=== PATIENT | male | born 1945 | race Caucasian/White ===

== ENCOUNTER 2016-10-08 15:52 | Inpatient (IN) | payer MEDICARE, OTHER ==
[2016-10-08] VITALS (7 sets, daily range): BP systolic 108–141; BP diastolic 64–81
[~2016-10-08] VITALS: Ht 190.5 cm; Wt 92.6 kg
--- NOTE | ~2016-10-08 | PR ---
[place], [place] PROGRESS NOTE NAME[id number] UNIT #: [id number] ROOM: 401 DOCTOR: ROBER WEINBERG MD BIRTHDATE: [birth year] DOS: 10/14/2016 SUBJECTIVE: The patient is doing much better. Still has left-sided chest tube, though his breathing is much better. He is alert and oriented. REVIEW OF SYSTEMS HEENT: No trouble swallowing. No double vision. No loss of vision. No pain. ENT AND RESPIRATORY: No wheeze. No change in voice. No cough. No shortness of breath. No coughing up blood. No epistaxis. CARDIOLOGIC: No chest pain. No dizziness. No irregular heartbeat. No leg edema. No palpitations. No shortness of breath. HEMATOLOGIC AND LYMPH: No past transfusion. No fatigue. No loss of appetite. No easy bruising. GASTROENEROLOGIC: No change in bowel habits. No vomiting blood. No abdominal cramping. No nausea. No vomiting. No diarrhea. No constipation. No blood in stool. MALE REPRODUCTIVE: No testicular pain. No penile discharge. MUSCULOSKELETAL: No back pain. No muscle pain or weakness. No tingling/numbness. UROLOGIC: No pain with urination. No difficulty urinating. No frequent urination. NEUROLOGIC: No burning pain in feet. No trouble with coordination. No loss of consciousness. No headache. No tingling/numbness. No memory loss. PHYSICAL EXAMINATION: GENERAL: Pleasant gentleman, in no apparent distress. VITAL SIGNS: Blood pressure 123/71, respirations 20, pulse 80, temperature 98.1. HEENT: Normocephalic, atraumatic NECK AND THYROID: Supple. No JVD, thyromegaly, or lymphadenopathy. HEART: Normal S1, S2. Regular rate and rhythm. LUNGS: Clear to auscultation and percussion. ABDOMEN: Soft. Nontender, nondistended. Bowel sounds present. EXTREMITIES: Normal ROM. No clubbing. No edema. LABORATORY DATA: White count of 275.4, hemoglobin of 9.6, hematocrit 32.6, platelet count of 276. ASSESSMENT: 1. Possible pneumonia. 2. Leukocytosis secondary to chronic lymphocytic leukemia/infection sepsis. 3. Anemia of chronic disease. 4. Immune deficiency. 5. Chronic lymphocytic leukemia. 6. Left chest tube placement. PLAN: Overall, he is doing much better. His breathing is much better. I expect the white count to improve once his overall condition improves. His hemoglobin and hematocrit is stable. We will just keep a close watch at this time. If the counts drop, then further intervention. I had a detailed [place], [place] PROGRESS NOTE NAME: BONNIE BENDER UNIT #: [id number] ROOM: 401 DOCTOR: ROBER WEINBERG MD BIRTHDATE: [birth year] discussion with the patient about it. Ample time was given to the patient to ask me questions. ROBER WEINBERG MD CM:PNTRANS [phone] ROBER WEINBERG MD 10/16/16 0039 interface
--- NOTE | ~2016-10-08 | PR ---
[place], [place] PROGRESS NOTE NAME: BONNIE BENDER UNIT #: [id number] ROOM: 401 DOCTOR: ROBER WEINBERG MD BIRTHDATE: [birth year] DOS: SUBJECTIVE: The patient is doing better, awake, alert and responsive. REVIEW OF SYSTEMS HEENT: No trouble swallowing. No double vision. No loss of vision. No pain. ENT AND RESPIRATORY: No wheeze. No change in voice. No cough. No shortness of breath. No coughing up blood. No epistaxis. CARDIOLOGIC: No chest pain. No dizziness. No irregular heartbeat. No leg edema. No palpitations. No shortness of breath. HEMATOLOGIC AND LYMPH: No past transfusion. No fatigue. No loss of appetite. No easy bruising. GASTROENEROLOGIC: No change in bowel habits. No vomiting blood. No abdominal cramping. No nausea. No vomiting. No diarrhea. No constipation. No blood in stool. MALE REPRODUCTIVE: No testicular pain. No penile discharge. MUSCULOSKELETAL: No back pain. No muscle pain or weakness. No tingling/numbness. UROLOGIC: No pain with urination. No difficulty urinating. No frequent urination. NEUROLOGIC: No burning pain in feet. No trouble with coordination. No loss of consciousness. No headache. No tingling/numbness. No memory loss. PHYSICAL EXAMINATION GENERAL: Pleasant gentleman in no apparent distress. VITAL SIGNS: Blood pressure 128/65, respirations 19, pulse 97, temperature 98.1. HEENT: Normocephalic, atraumatic NECK AND THYROID: Supple. No JVD, thyromegaly, or lymphadenopathy. HEART: Normal S1, S2. Regular rate and rhythm. LUNGS: Showed minimal decreased breath sounds in the right side. ABDOMEN: Soft. Nontender, nondistended. Bowel sounds present. EXTREMITIES: Normal ROM. No clubbing. No edema. LABORATORY DATA: White count up to 76.4, hemoglobin 9.7, hematocrit 33.0, platelet count of 203. ASSESSMENT: 1. Chronic lymphocytic leukemia. 2. Immunodeficiency 3. Pneumonia. 4. Leukocytosis secondary to chronic lymphocytic leukemia/infection. 5. Status post chest tube placement. PLAN: Overall, he is still getting better. We will just keep a close watch at this time. We expect the white count to improve once his overall condition improves. Follow for now. Continue broad spectrum antibiotics. We will wait for cytology to come back and discuss. [place], [place] PROGRESS NOTE NAME: BONNIE BENDER UNIT #: [id number] ROOM: 401 DOCTOR: ROBER WEINBERG MD BIRTHDATE: [birth year] ROBER WEINBERG MD CM:PNTRANS [phone] ROBER WEINBERG MD 10/13/16 2248 interface
--- NOTE | ~2016-10-08 | PR ---
[place], [place] PROGRESS NOTE [id number] UNIT #: [id number] ROOM: 401 DOCTOR: ROBER WEINBERG MD BIRTHDATE: [birth year] DOS: 10/10/2016 SUBJECTIVE: The patient is doing better, though he had fever yesterday. REVIEW OF SYSTEMS: HEENT: No trouble swallowing. No double vision. No loss of vision. No pain. ENT AND RESPIRATORY: No wheeze. No change in voice. No cough. No shortness of breath. No coughing up blood. No epistaxis. CARDIOLOGIC: No chest pain. No dizziness. No irregular heartbeat. No leg edema. No palpitations. No shortness of breath. HEMATOLOGIC AND LYMPH: No past transfusion. No fatigue. No loss of appetite. No easy bruising. GASTROENTEROLOGIC: No change in bowel habits. No vomiting blood. No abdominal cramping. No nausea. No vomiting. No diarrhea. No constipation. No blood in stool. MALE REPRODUCTIVE: No testicular pain. No penile discharge. MUSCULOSKELETAL: No back pain. No muscle pain or weakness. No tingling/numbness. UROLOGIC: No pain with urination. No difficulty urinating. No frequent urination. NEUROLOGIC: No burning pain in feet. No trouble with coordination. No loss of consciousness. No headache. No tingling/numbness. No memory loss. PHYSICAL EXAMINATION: GENERAL: Pleasant gentleman in no apparent distress. VITAL SIGNS: Stable, afebrile. HEENT: Normocephalic, atraumatic. NECK AND THYROID: Supple. No JVD, thyromegaly, or lymphadenopathy. HEART: Normal S1, S2. Regular rate and rhythm. LUNGS: Clear to auscultation and percussion. ABDOMEN: Soft. Nontender, nondistended. Bowel sounds present. EXTREMITIES: Normal ROM. No clubbing. No edema. LABORATORY DATA: White count of 248.7, hemoglobin 9.9, hematocrit 32.6, MCV 97.6, platelet count 276,000. Peripheral smear shows lymphocytes 2-6.3 and no other abnormal cells. ASSESSMENT: 1. Possible pneumonia. 2. Left large pleural effusion. 3. Status post MediPort placement. 4. Chronic lymphocytic leukemia with elevated white count secondary infections/chronic lymphocytic leukemia. 5. Anemia of neoplastic disorder. PLAN: Dr. Villafuerte going to evaluate him for his pleural effusion. In the meantime, continue broad spectrum antibiotics. Blood cultures are pending at this point. Depending on the above further intervention discussed. We will follow. [place], [place] PROGRESS NOTE NAME: BONNIE BENDER UNIT #: [id number] ROOM: [facility] DOCTOR: ROBER WEINBERG MD BIRTHDATE: [birth year] ROBER WEINBERG MD CM:PNTRANS [phone] ROBER WEINBERG MD 10/10/16 1457 interface
--- NOTE | ~2016-10-08 | PR ---
[place], [place] PROGRESS NOTE NAME: [facility]END[id number] UNIT #: [id number] ROOM: 401 DOCTOR: ROBER WEINBERG MD BIRTHDATE: [birth year] DOS: 10/12/2016 SUBJECTIVE: The patient is doing better. He finally got a left-sided chest tube placement and pleural fluid was drained which is sent for cytology. He is feeling much better today. His breathing is better. REVIEW OF SYSTEMS HEENT: No trouble swallowing. No double vision. No loss of vision. No pain. ENT AND RESPIRATORY: No wheeze. No change in voice. No cough. No shortness of breath. No coughing up blood. No epistaxis. CARDIOLOGIC: No chest pain. No dizziness. No irregular heartbeat. No leg edema. No palpitations. No shortness of breath. HEMATOLOGIC AND LYMPH: No past transfusion. No fatigue. No loss of appetite. No easy bruising. GASTROENEROLOGIC: No change in bowel habits. No vomiting blood. No abdominal cramping. No nausea. No vomiting. No diarrhea. No constipation. No blood in stool. MALE REPRODUCTIVE: No testicular pain. No penile discharge. MUSCULOSKELETAL: No back pain. No muscle pain or weakness. No tingling/numbness. UROLOGIC: No pain with urination. No difficulty urinating. No frequent urination. NEUROLOGIC: No burning pain in feet. No trouble with coordination. No loss of consciousness. No headache. No tingling/numbness. No memory loss. PHYSICAL EXAMINATION: GENERAL: A pleasant gentleman in no apparent distress. VITAL SIGNS: Blood pressure 120/70, respirations 18, pulse 90, temperature 98.8. HEENT: Normocephalic, atraumatic NECK AND THYROID: Supple. No JVD, thyromegaly, or lymphadenopathy. HEART: Normal S1, S2. Regular rate and rhythm. LUNGS: Clear to auscultation and percussion. ABDOMEN: Soft. Nontender, nondistended. Bowel sounds present. EXTREMITIES: Normal ROM. No clubbing. No edema. LABORATORY DATA: White count of 248.7, hemoglobin 9.9, hematocrit 32.6, platelet count of 176. CBC from today is pending. ASSESSMENT: 1. Leukocytosis/lymphocytosis secondary to chronic lymphocytic leukemia. 2. Immunodeficiency. 3. Anemia of neoplastic disorder. 4. Status post left thoracostomy tube with of the pleural fluid. PLAN: We will wait for the cytology reports of the pleural fluid to come back. In the meantime, continue broad spectrum antibiotics and follow up counts closely. I had detailed discussion with the patient about it. [place], [place] PROGRESS NOTE NAME: BONNIE BENDER UNIT #: [id number] ROOM: 401 DOCTOR: ROBER WEINBERG MD BIRTHDATE: [birth year] ROBER WEINBERG MD CM:PNTRANS 0 30 ROBER WEINBERG MD 10/12/162330 interface
--- NOTE | ~2016-10-08 | PR ---
[place], [place] PROGRESS NOTE NAME: BONNIE BENDER [facility] #: [id number] UNIT #: [id number] ROOM: 401 DOCTOR: SIMEON RAHMAN MD BIRTHDATE: [birth year] DOS: 10/15/2016 PULMONARY PROGRESS NOTE SUBJECTIVE: The patient has chemical pleurolysis done yesterday as well through the chest tube for the patient. There was no fluid drainage was noted. Some fluid for this patient noted around the site of the drainage. The patient denies any symptoms of chest pain, which was severe. The patient does take [place] p.r.n. for the management of the chest pain. OBJECTIVE: VITAL SIGNS: Shows a normal temperature, respiratory rate of 18, heart rate 90, blood pressure 115/ . The intake is 2.285 liters. The output was 1.550. Pulse oxygen saturation of the patient recorded on 2 liters nasal cannula 92% saturation. HEENT: Examination shows head was atraumatic. Eyes nonicterus. NECK: Supple. CARDIOVASCULAR SYSTEM: S1, S2 audible. LUNGS: The patient was noted without any wheezing or crackles at the present time on the right side. Decreased breaths are noted left lower chest. ABDOMEN: Soft. EXTREMITIES: Showed no edema. LABORATORY DATA: BUN and creatinine today were normal. CBC: WBC count 275,000, hemoglobin 9.6, hematocrit 32.6, platelet count 276,000. Chest x-ray of the patient done this morning for the patient shows haziness for this patient collection of the pleural fluid remains persistent possible loculation of the pleural fluid. The ultrasound of the chest has been personally performed for this patient and the dressing was removed for the patient at the bedside. Multiloculated fluid was still noted in the left lower chest. Chest tube was noted with a bit kinking at the site, which was corrected. After that, the patient has been noted with drainage of 250 or 300 mL of fluid, which was noted hemorrhagic fluid. IMPRESSION: 1. The patient with history of chronic lymphocytic leukemia for this patient with possibility of acute pneumonia. 2. 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 3. Significantly hemorrhagic pleural fluid multiloculated as well. PLAN OF TREATMENT: Detailed discussion has been made with the patient for further intervention to be needed as the VATS procedure for more definitive assessment and management of current pleural fluid. The pleural biopsy will be recommended to rule out any underlying malignancy including consideration for this patient, possibility of mesothelioma. The chest tube was remained to the suction. I have spoken to the primary care attending of patient, Dr. Verdugo for the patient about that and arrangement will be made since the patient has made his mind that he would like to go to [facility] for further care. I have also spoken with the thoracic surgeon at [facility], Dr. Reaves [place], [place] PROGRESS NOTE NAME: [id number] UNIT #: [id number] ROOM: [facility] DOCTOR: JASSON AVENDAÑO MD,SIMEON BIRTHDATE: [birth year] win as he open-ended for further intervention that will be needed. All of them agreeable for that. In the meantime, continue other previous treatment therapy, plan of management and care. Usual care, other supportive plan of therapy. SIMEON SPAULDING MD CM:PNTRANS [phone] SIMEON AVENDAÑO MD 10/16/16 034 interface
--- NOTE | ~2016-10-08 | PR ---
[place], [place] PROGRESS NOTE NAME: BONNIE BENDER [facility] #: [id number] UNIT #: [id number] ROOM: 401 DOCTOR: SIMEON RAHMAN MD BIRTHDATE: [birth year] DOS: 10/12/2016 PULMONARY PROGRESS NOTE SUBJECTIVE: He had been noted comfortable at this time. Chest tube for the patient was inserted yesterday about 1500 mL of total pleural fluid for this patient drained from the left pleural space. The patient has been getting [place] for the patient's pain management as needed. Denies any symptoms of hemoptysis. There was mild cough. OBJECTIVE: VITAL SIGNS: Showed normal temperature, respiratory rate 20, heart rate 87, blood pressure 120/62. Pulse oxygen saturation of the patient noted on 3 liters canula 92% saturation. HEENT: Examination shows no acute change. NECK: Supple. CARDIOVASCULAR: S1, S2 is audible. LUNGS: The patient was noted without any wheezing or crackles on the right side. Decreased breath sounds noted in the left lower lung. The chest tube is in place. ABDOMEN: Soft, nontender. LABORATORY DATA: Pleural fluid analysis shows wbc's count noted 9787 with 355,000 rbc's. The hematocrit was noted as 3.7. Lymphocyte noted 93%. The cytology of the pleural fluid was noted as benign. Pleural fluid analysis for the patient was further done for this patient with glucose noted 94, total protein 4.5, cholesterol of 87, triglycerides 71, albumin of 2.4, LDH 741. Chest x-ray done this morning shows the chest tube of the patient remains in place with persistent partially loculated pleural fluid was noted, small to moderate sized in the left lower chest. IMPRESSION: 1. The patient with recurrent pleural fluid of the patient noted consistent with findings of acute complicated pleural fluid secondary to acute bacterial pneumonia is very likely. 2. History of CLL as well, which has been known previously. The cytology of pleural fluids noted as benign without any malignant cells. PLAN OF TREATMENT: Continue antibiotics, bronchodilators. We assess the patient with another chest x-ray tomorrow morning if necessary inject Cathflo for the patient through the chest tube to break the loculation. Other previous treatment, plan of management will be continued as well. Usual care. Ordered the supportive therapy, plan of care as in plan of management. Continue antibiotics, bronchodilators, oxygen supplementation and monitor pleural fluid output. The total output of the pleural fluid was noted about 1500 mL of greater, which were noted very hemorrhagic. Also add more lab for this patient in today's note for the patient before the impression note today, BUN today was noted as normal. Creatinine was normal. Vancomycin level noted at 12.4. CBC: WBC count 276,000, hemoglobin 8.7, hematocrit 33.0, platelet count 203,000. The differentials noted predominantly as the lymphocytes. [place], [place] PROGRESS NOTE NAME: BONNIE BENDER UNIT #: [id number] ROOM: [facility] DOCTOR: SIMEON RAHMAN MD BIRTHDATE: [birth year] SIMEON SPAULDING MD CM:PNTRANS [phone] SMIEON AVENDAÑO MD 10/13/167 interface
--- NOTE | ~2016-10-08 | PROC NOTE ---
[place], [place] PROCEDURE NOTE NAME[facility]: [id number] UNIT #: [id number] ROOM: 401 DOCTOR: JASSON AVENDAÑO MD,SIMEON BIRTHDATE: [birth year] DOS: 10/14/2016 CHEMICAL PLEUROLYSIS PREOPERATIVE DIAGNOSIS: Persistent loculated pleural fluid in the patient. POSTOPERATIVE DIAGNOSIS: Persistent loculated pleural fluid in the patient. PROCEDURE DESCRIPTION: The patient was informed about the procedure. The chest tube was clamped. The sterile preparation of 4 mg ____ was mixed in normal saline, total of ____ volume injected through the chest tube without any difficulty. Additional 100 mL of sterile normal saline also injected for the patient to flush the chest tube. The chest tube remained clamped for 4 hours and released back to suction. Procedure well tolerated without any complications noted during or after the procedure. SIMEON SPAULDING MD CM:PROCNOTE:PROCEDURE NOTE [id number] SIMEON AVENDAÑO MD
--- NOTE | ~2016-10-08 | PR ---
[place], [place] PROGRESS NOTE NAME: [facility]ONNIE BENDER [facility] [id number] UNIT #: [id number] ROOM: 401 DOCTOR: ROBER WEINBERG MD BIRTHDATE: [birth year] DOS: 10/11/2016 SUBJECTIVE: The patient is doing much better. He says his breathing is much better. He was evaluated by Dr. Villafuerte for his left-sided pleural effusion. REVIEW OF SYSTEMS: HEENT: No trouble swallowing. No double vision. No loss of vision. No pain. ENT AND RESPIRATORY: No wheeze. No change in voice. No cough. No shortness of breath. No coughing up blood. No epistaxis. CARDIOLOGIC: No chest pain. No dizziness. No irregular heartbeat. No leg edema. No palpitations. No shortness of breath. HEMATOLOGIC AND LYMPH: No past transfusion. No fatigue. No loss of appetite. No easy bruising. GASTROENEROLOGIC: No change in bowel habits. No vomiting blood. No abdominal cramping. No nausea. No vomiting. No diarrhea. No constipation. No blood in stool. MALE REPRODUCTIVE: No testicular pain. No penile discharge. MUSCULOSKELETAL: No back pain. No muscle pain or weakness. No tingling/numbness. UROLOGIC: No pain with urination. No difficulty urinating. No frequent urination. NEUROLOGIC: No burning pain in feet. No trouble with coordination. No loss of consciousness. No headache. No tingling/numbness. No memory loss. PHYSICAL EXAMINATION: GENERAL: He is a pleasant gentleman, in no apparent distress. VITAL SIGNS: Stable, afebrile. HEENT: Normocephalic, atraumatic NECK AND THYROID: Supple. No JVD, thyromegaly, or lymphadenopathy. HEART: Normal S1, S2. Regular rate and rhythm. LUNGS: Clear to auscultation and percussion. ABDOMEN: Soft. Nontender, nondistended. Bowel sounds present. EXTREMITIES: Normal ROM. No clubbing. No edema. LABORATORY DATA: White count of 248.7 thousand, hemoglobin 9.9, hematocrit 32.6, platelet count of 176,000. ASSESSMENT: 1. Large left-sided pleural effusion. 2. Chronic lymphocytic leukemia diagnosed in 2014. 3. Immunodeficiency syndrome. 4. Possible acute pneumonia. PLAN: I expect the white count to improve once his overall condition improves, hemoglobin and hematocrit is stable at this point. Dr. Villafuerte evaluated the patient for thoracentesis or not. If it is done, we will review the cytology for pleural fluid. In the meantime, continue broad spectrum antibiotics and follow counts. Discussed with the patient in detail. Ample time was given to the patient to ask me questions. [place], [place] PROGRESS NOTE NAME: BONNIE BENDER [facility] #: [id number] UNIT #: [id number] ROOM: [facility] DOCTOR: ROBER WEINBERG MD BIRTHDATE: [birth year] ROBER WEINBERG MD CM:YOUNG [id number] ROBER WEINBERG MD 10/11/16 1100 interface
--- NOTE | ~2016-10-08 | CON ---
[place], [place] REPORT OF CONSULTATION [id number] UNIT #: [id number] ROOM: 401 DOCTOR: SIMEON RAHMAN MD BIRTHDATE: [birth year] DOS: 10/10/2016 REASON FOR CONSULTATION: Assess the patient with recurrent left-sided pleural fluid. HISTORY OF PRESENT ILLNESS: This is a 71-year-old white male patient who has been unknown to me. The patient has been diagnosed with CLL by Dr. Marion and receiving intravenous gamma globulin in his office. The patient has a MediPort inserted, that was completed on 10/01/2016. The MediPort was inserted for the patient on left side of the chest. The patient stated since then he has been feeling excruciating pain like his rib is broken on the left side. Pain was described to be nonradiating. He has been noted with symptoms of some shortness of breath. The patient started with symptoms of fever and chills and presented to the hospital for further assessment yesterday. He has been hospitalized on 10/08/2016. He has been admitted to the hospital and being treated for these problems. The patient denies any symptoms of hemoptysis. Denies symptoms of coughing or sputum expectoration. REVIEW OF SYSTEMS: The remaining systems review for this patient is as follows; CONSTITUTIONAL: He does have symptoms of fever or chills at home. He was also noted somewhat decreased appetite. EYES: Denies any burning, redness, or tenderness. EAR, NOSE, THROAT: Denies sore throat, hoarseness, or otalgia. CARDIOVASCULAR SYSTEM: The patient denies any symptoms of anginal pain noted with recurrent left-sided pain in the chest. The patient does not seem to be related to the cardiac in nature for this patient and not consistent with angina pain. Denies any symptoms of palpitations, syncopal episodes or edema of the lower extremities. GASTROINTESTINAL: Denies dysphagia, nausea, vomiting, diarrhea, abdominal pain, hematemesis, melena, or hematochezia. SKIN: Denies any lesions or rashes. MUSCULOSKELETAL: The patient denies symptoms of acute joint pain, redness, or tenderness. CENTRAL NERVOUS SYSTEM: Denies dizziness, headache, diplopia, syncopal episode, tingling sensations. Remaining systems were reviewed with the patient, they were noted all negative. PAST MEDICAL HISTORY: The patient was known with history of: 1. CLL that was diagnosed in [address] Marion. 2. History of BPH. 3. Past history of HSV infection. PAST SURGICAL HISTORY: 1. Right inguinal hernia repair. 2. Left MediPort insertion for this patient that was done on 10/01/2016. 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 [place], [place] REPORT OF CONSULTATION NAME: BONNIE BENDER UNIT #: [id number] ROOM: 401 DOCTOR: JASSON AVENDAÑO MD,SIMEON BIRTHDATE: [birth year] FAMILY HISTORY: Father for this patient at the age of 70+ years old, complication of cancer of the liver. Mother at the age of 70+ years old complications related to old age. HOME MEDICATIONS: Noted use of; 1. Acyclovir. 2. Finasteride. 3. Flomax. 4. Intravenous gamma globulin administration every month. DRUG ALLERGY HISTORY: Reported as no known drug allergies. MEDICATIONS: Current administered medications noted use of intravenous vancomycin, meropenem, Levaquin, DVT prophylaxis with Lovenox 40 mg subcutaneous daily, Flomax and finasteride. PHYSICAL EXAMINATION: GENERAL: This is a 71-year-old male who has been currently noted to be without any distress. Height of 6 feet 3 inches, weight of 208 pounds for this patient with a BMI 25. VITAL SIGNS: For the patient which has been recorded showed the temperature of the patient recorded as 100.4 degrees Fahrenheit yesterday, otherwise noted afebrile. The respiratory rate of the patient recorded between 18-20, heart rate 87-103 blood pressure 122/60-131/69. Intake for the patient was 2400, output 1300 mL in the last 24 hours, pulse oxygen saturation for the patient recorded on room air as 89% on admission and currently noted on 3 liters canula 92% saturation. HEENT: Examination shows head was atraumatic. Eyes nonicterus. NECK: Supple. CARDIOVASCULAR: S1, S2 is audible. LUNGS: The patient was noted with absent breath sounds noted in the left mid and lower portion of the lung. There were no crackles or wheezing noted in the remaining lungs. ABDOMEN: Soft, nontender and flat. EXTREMITIES: The patient showed no edema, clubbing or cyanosis. CENTRAL NERVOUS SYSTEM: The patient was noted without any gross focal deficit. Cranial nerves 2 through 12 intact. SKIN: No lesions or rashes. MUSCULOSKELETAL: No acute deformities. LABORATORY DATA: Lactic acid on 10/08/2016 was 0.5, which was normal. PT/PTT on 10/08/2016 on admission was normal. CMP on admission on 10/08/2016, the patient noted BUN 19, creatinine 1.51, calcium was 8.4. CPK normal. C-reactive protein 11.60. CK-MB and troponin normal. ESR was noted on 10/08/2016 as 79, which was moderately elevated. Urinalysis that was done on admission was noted as 1+ blood, otherwise normal. CBC of the patient on admission on 10/09/2016, WBC count 244,000 hemoglobin 9.1, hematocrit 38.9, platelet count of 145,000. The differential of the patient's CBC was noted as 92% lymphocytes and 5% neutrophils. BMP of the patient that were done yesterday for this patient noted normal BUN and creatinine. CBC on the 10/08/2016 for the patient noted WBC [place], [place] REPORT OF CONSULTATION [facility]: [facility] [id number] UNIT #: [id number] ROOM: [facility] DO[facility] [birth year] count 279, hemoglobin 10, hematocrit 34.0, platelet count 154,000. The CBC of this morning, WBC count 248,000 hemoglobin 9.9, hematocrit 32.6, platelet count 175,000 with 91% segmented neutrophils. Chest x-ray of the patient was noted as MediPort noted in place on the left side. The patient with area of consolidation, infiltration noted in the left lower lung. The chest x-ray of the patient that was done for the patient on admission on 10/08/2016 shows pleural fluid formation with area of atelectasis, infiltration, consolidation combination be considered. The pleural fluid appeared to be partially loculated. IMPRESSION: 1. The patient with possibility of acute pneumonia for this patient with associated pleural fluid with the chronic immunodeficiency secondary to underlying CLL. 2. The patient with increased leukocytosis noted, most likely response to the current infectious etiology. 3. Rule out any bacteremia as well. 4. Rule out other causes of current chest pain and pleural fluid for the patient including pulmonary embolism. 5. History of. The patient was known as well. PLAN OF TREATMENT: Monitoring culture results. CTA of the chest for the patient was ordered. After assessment of the CT of the chest with further demarcation of the good anatomy of the patient, chest tube insertion verses the thoracentesis will be considered after that by tomorrow. In the meantime, continue pain management. The pain seems to be better. Monitoring temperature curve for this patient as well. Monitor all the culture results, which has been already sent on this patient. The patient does not have any cough, so the sputum culture could not be sent. Other supportive plan of management at this time. The patient was noted to require broad spectrum intravenous antibiotics, which will be continued until the culture results will be completely available. After the results of the thoracentesis, pleural fluid and assessment, any further intervention for the patient if necessary will be ordered accordingly. Assessment and management have been discussed with the patient in detail. Thanks for allowing me to participate in the care of this patient. SIMEON SPAULDING MD CM:CONSTR:REPORT OF CONSULTATION 1108 10/10/16 2223 interface
--- NOTE | ~2016-10-08 | PR ---
[place], [place] PROGRESS NOTE [id number] UNIT #: [id number] ROOM: 401 DOCTOR: JASSON AVENDAÑO MD,SIMEON BIRTHDATE: [birth year] DOS: 10/13/2016 PULMONARY FOLLOWUP NOTE SUBJECTIVE: He has been comfortably resting. There has not been any further drainage of the pleural fluid still noted from the chest tube in the last 24 hours. He denies symptoms of coughing or sputum expectoration or any abdominal pain. The antibiotic for the patient was continued. OBJECTIVE: VITAL SIGNS: For the patient, which have been recorded shows the temperature of the patient recorded as normal, respiratory rate of 20, heart rate of 84, blood pressure 119/74. Pulse oxygen saturation recorded on 3 liters nasal cannula 95% saturation. HEENT: Examination showed no acute change. NECK: Supple. CARDIOVASCULAR SYSTEM: S1, S2 is audible. LUNGS: The patient noted decreased breath sounds in the right lower portion of the lung. There were no crackles, rhonchi or wheezing. ABDOMEN: Soft, nontender. LABORATORY DATA: Chest x-ray of the patient done this morning showed persistent loculated pleural fluid for the patient and haziness nonexpanded lung for the patient in the left lower lung, right lung was clear, chest tube is in place. IMPRESSION: Loculated pleural fluid, which was noted hemorrhagic most likely secondary to acute pneumonia with history of chronic lymphocytic leukemia. PLAN OF TREATMENT: Chemical pleurolysis will be done for the patient Cathflo today. Continuation of the previous medical management at this time. SIMEON SPAULDING MD CM:PNTRANS [id number] SIMEON AVENDÑAO MD 10/13/162034 interface
--- NOTE | ~2016-10-08 | PROC NOTE ---
[place], [place] PROCEDURE NOTE NAME: BONNIE BENDER UNIT #: [id number] ROOM: [facility] DOCTOR: JASSON AVENDAÑO MD,SIMEON BIRTHDATE: [birth year] DOS: 10/11/2016 CHEST TUBE THORACOSTOMY NOTE PROCEDURE: Chest tube thoracostomy on the left side for the patient with ultrasound guidance for the patient. PREOPERATIVE DIAGNOSIS: Moderate loculated left pleural fluid for the patient. POSTOPERATIVE DIAGNOSES: Moderate loculated left pleural fluid for the patient with hemorrhagic pleural fluid. COMPLICATIONS: None. PROCEDURE DESCRIPTION: Informed consent obtained for the patient. The patient was placed in sitting position. Ultrasound of the chest for the patient was personally performed. The pleural fluid rather was isolated for the patient for the insertion of the chest tube. Skin was marked. Skin was cleaned with chlorhexidine solution. After that, 1% lidocaine was administered in the skin in intercostal space during administration of local anesthetic for the patient. Small amount of hemorrhagic pleural fluid was aspirated in the syringe. After that, large bore needle entered into the left pleural space. The free fluid was aspirated. Guidewire threaded through the needle into the pleural space for the patient without any difficulty. Leaving the guidewire in space, removing the needle. An incision was given at the skin for this patient, which was enlarged for the patient up to 22 Icelandic size without any difficulty. The chest tube inserted by the Seldinger technique into the left pleural space without any difficulty. About 220 mL of pleural fluid was removed for this patient for the initial sampling. After drainage for about 1000 mL of pleural fluid for the patient, chest tube will be clamped for about 15 minutes to the gravity drainage for another 15 minutes and then started to the suction. Chest x-ray of the patient has been ordered for the patient to be done a few hours later to reassess the reexpansion of the lung. Based on the reexpansion of the lung, further decision intervention for the patient will be ordered for the patient. The patient may require the VATS procedure if necessary for the current loculated pleural fluid management as needed. The pleural fluid was sent for cytology as well as other routine testing, assessment of any possible infection and hematocrit was also ordered to rule out hemothorax. [place], [place] PROCEDURE NOTE NAME: BONNIE BENDER UNIT #: [id number] ROOM: 401 DOCTOR: SIMEON RAHMAN MD BIRTHDATE: [birth year] SIMEON SPAULDING MD CM:PROCNOTE:PROCEDURE NOTE 1329 [id number] SIMEON AVENDAÑO MD
--- NOTE | ~2016-10-08 | PROC NOTE ---
[place], [place] PROCEDURE NOTE NAME: BONNIE BENDER UNIT #: [id number] ROOM: 401 DOCTOR: JASSON AVENDAÑO MD,SIMEON BIRTHDATE: [birth year] DOS: 10/13/2016 PROCEDURE: Chemical pleurolysis. PREOPERATIVE DIAGNOSIS: Chemical pleurolysis for the left loculated pleural fluid with the chest tube. POSTOPERATIVE DIAGNOSIS: Chemical pleurolysis for the left loculated pleural fluid with the chest tube. PROCEDURE DESCRIPTION: The patient has been informed about the procedure. The chest tube was clamped for this patient. 4 mg of Cathflo mixed in the normal saline total volume of 60 mL injected through the chest tube into the left pleural space without difficulty. Chest tube will be clamped for the patient for 4 hours and released back to the suction. The procedure was well tolerated without any complications. The chest x-ray of the patient will be done for this patient tomorrow morning to reassess the drainage of pleural fluid. SIMEON SPAULDING MD CM:PROCNOTE:PROCEDURE NOTE 1033 [id number] SIMEON AVENDAÑO MD
--- NOTE | ~2016-10-08 | CON ---
[place], [place] REPORT OF CONSULTATION [id number] UNIT #: [id number] ROOM: 401 DOCTOR: ROBER WEINBERG MD BIRTHDATE: [birth year] DOS: 10/09/2016 HISTORY OF PRESENT ILLNESS: The patient is a pleasant 71-year-old gentleman with a history of chronic lymphocytic leukemia and immunodeficiency who had a recent MediPort insertion in the left subclavian and states that after that he started having fever, chills and fatigue, he waited for sometime and discontinued and he had temperature of 100.6. He took Tylenol without much relief. He had been having pain in the left side and he called his physician who advised him to come to the Emergency Room and being consulted for further evaluation and management. PAST MEDICAL HISTORY: Notable for: 1. Chronic lymphocytic leukemia. 2. Immunodeficiency. 3. Herpes simplex virus infection. 4. BPH. PAST SURGICAL HISTORY: Right inguinal hernia repair, status post left subclavian MediPort insertion on 10/01/2016. SOCIAL HISTORY: No smoking, drinking or drug abuse. FAMILY HISTORY: Father , with liver cancer. Mother with age 70 from old age. ALLERGIES: There are no allergies. MEDICATIONS: Acyclovir, finasteride, tamsulosin, and hydrochloride. REVIEW OF SYSTEMS: CONSTITUTIONAL: No chills. No fatigue. No fever. No loss of appetite. No night sweats. No weakness. No weight loss. HEENT: No trouble swallowing. No loss of smell. No loss of hearing. No double vision. No pain. No discharge. ENT AND RESPIRATORY: No wheeze. No sore throat. No change in voice. No hearing loss. No nose bleed. No cough. No trouble breathing through nose. No shortness of breath. No coughing up blood. No epistaxis. CARDIOVASCULAR: No chest pain. No dizziness. No irregular heartbeat. No leg edema. No pain in legs while walking. No palpitations. No shortness of breath. DERMATOLOGIC: No acne. No hives. No laceration. No mole. No rash. ENDOCRINE: No cold intolerance. No diabetes. No fatigue. No hot flashes. No polydipsia. No polyuria. No urinating frequently. No weight loss. HEMATOLOGIC AND LYMPH: No fatigue. No easy bruising. GASTROENTEROLOGIC: No change in bowel habits. No indigestion. No frequent bloating. No vomiting blood. No abdominal cramping. No nausea. No heartburn. No vomiting. No abdominal pain. No dysphagia. No diarrhea. No constipation. No blood in stool. MALE REPRODUCTIVE: No testicular pain. No difficulty with erection. No diminished sexual drive. No penile discharge. [place], [place] REPORT OF CONSULTATION NAME: BONNIE BENDER UNIT #: [id number] ROOM: [facility] DOCTOR: ROBER WEINBERG MD BIRTHDATE: [birth year] MUSCULOSKELETAL: No back pain. No muscle pain or weakness. No neck pain. No tingling/numbness. No swelling/bruising. No osteoporosis treatment. OPHTHALMOLOGIC: No double vision. No diminished vision. No loss of vision. UROLOGIC: No dysuria. No frequent nighttime urination. No pain with urination. No difficulty urinating. No blood in urine. No frequent urination. No urinary incontinence. NEUROLOGIC: No loss of sensation in specific body area. No vertigo. No burning pain in feet. No trouble with balance. No trouble with coordination. No loss of consciousness. No loss of feeling/power. No confusion. No headache. No tingling/numbness. PSYCHOLOGIC: No tinnitus. No headaches. No shortness of breath. No weight decrease. No nausea. No vomiting. No abdominal discomfort. No constipation. No diarrhea. No depression. No anxiety. PHYSICAL EXAMINATION: GENERAL: Pleasant gentleman, feeling better today, in no acute distress. VITAL SIGNS: Stable, afebrile. HEENT: Oral mucosa appears intact. The external ears are normal in appearance. Nares are patent without lesions, exudates, erythema, or inflammation. Tongue is symmetrical. Uvula is midline. NECK AND THYROID: Neck supple without palpable masses. Trachea is midline. No thyromegaly. No carotid bruit or JVD. BREASTS: Normal. Nipples unremarkable. No drainage. No lumps felt on either side. HEART: Normal S1, S2, without significant murmur, rub, or gallop. LUNGS: Clear to auscultation and percussion with good air entry bilaterally. The patient is breathing easily without the use of accessory muscles. Diaphragmatic excursions are intact. ABDOMEN: No costovertebral angle tenderness. Soft. No organomegaly or masses. Nontender. No hernias present. Liver and spleen are not palpable. LYMPHATIC: No adenopathy noted in the cervical, supraclavicular, axillary, or inguinal regions. NEUROLOGIC: Nonfocal. Oriented to person, place, and time. MENTAL STATUS: Appropriate for mood and affect. PERIPHERAL PULSES: No varicosities. Femoral and pedal pulses are palpable. EXTREMITIES: Without cyanosis, clubbing, or edema. No gross anomalies. LABORATORY DATA: White count of 244.1, hemoglobin 9.1, hematocrit 30.9, MCV 98.4, platelet count 144,000. Peripheral smear showed lymphocytosis 92%, neutrophils of 5. ANC of 12.2. Glucose of 96, BUN of 19, EGFR 46. Sodium 136, potassium 4.4, SGOT 22, SGPT 16. RADIOLOGY: Chest x-ray showed some moderate to large left-sided pleural effusion with left basilar atelectasis and/or consolidation compared to prior exam. ASSESSMENT: 1. Large left pleural effusion, which is getting bigger. 2. Chronic lymphocytic leukemia with high white count secondary to chronic lymphocytic leukemia, which is decreasing. [place], [place] REPORT OF CONSULTATION NAME: BONNIE BENDER UNIT #: [id number] ROOM: 401 DOCTOR: ROBER WEINBERG MD BIRTHDATE: [birth year] 3. Immunodeficiency. 4. Chronic kidney disease. PLAN: The patient will continue broad spectrum antibiotics. In addition, I am worried about the pleural effusion. We will ask Dr. Villafuerte to evaluate him maybe he needs to be drained, etc. Overall, he is doing better today. We will keep a close watch on the white count. If it still increases, then further intervention. Ample time was given to the patient to ask me questions. We will follow. Thanks for consulting and letting me participate in the care of this interesting patient. ROBER WEINBERG MD CM:CONSTR:REPORT OF CONSULTATION 1405 10/10/16 1048 interface
--- NOTE | ~2016-10-08 | PR ---
[place], [place] PROGRESS NOTE NAME: BONNIE BENDER [facility] #: [id number] UNIT #: [id number] ROOM: 401 DOCTOR: JASSON AVENDAÑO MDSIMEON BIRTHDATE: [birth year] DOS: 10/11/2016 SUBJECTIVE: The patient was seen and examined on 10/11/2016. The patient has been noted without any ongoing acute complaints at the present time. The patient has been noted without any symptoms of chest pain, abdominal pain. Shortness of breath was still noted for this patient, which occurs with exertion and hypoxia. The patient has been intermittently using oxygen supplementation with the nasal cannula. OBJECTIVE: VITAL SIGNS: The patient showed the temperature of the patient has been noted as normal to 99.8 degrees Fahrenheit, respiratory rate 18-20, heart rate 81-90, blood pressure 124/71-116/60. Intake for the patient is 1580 mL, output 1750 mL. Pulse oxygen saturation 3 liters cannula was 93% saturation recorded, on room air was noted as 88% saturation, 86% saturation with walking. HEENT: Examination shows head was atraumatic. Eyes nonicterus. NECK: Supple. CARDIOVASCULAR: S1, S2 is audible. LUNGS: The patient was noted without any wheezing or crackles. The absent breath sounds on the left side as previously noted. ABDOMEN: Soft, nontender. LABORATORY DATA: CT of the chest, the patient did not show any evidence of pulmonary embolism. The large partially loculated pleural fluid was noted in the left side with area of compression atelectasis on the left side as well. The fluid noted was quite large. Multiple lymph node enlargement noted previously in the supraclavicular area, axilla and other areas which were described by the radiologist as well. The right lung was noted clear for any acute abnormalities. IMPRESSION: The patient who has been currently noted with very large left pleural fluid. Differential diagnosis of hematoma, pleural fluid related to possibility of malignancy, acute infection and others has been assessed. Ultrasound of the chest has been personally performed at bedside, which shows multiloculated large pleural fluid in the left side. PLAN OF TREATMENT: The patient will be undergoing a chest tube insertion for this patient for the current medical management instead of thoracentesis. [place], [place] PROGRESS NOTE NAME: BONNIE BENDER UNIT #: [id number] ROOM: [facility] DOCTOR: SIMEON RAHMAN MD BIRTHDATE: [birth year] SIMEON SPAULDING MD CM:YOUNG [phone] SIMEON AVENDAÑO MD 10/11/162226 interface
--- NOTE | ~2016-10-08 | PR ---
[place], [place] PROGRESS NOTE NAME: BONNIE BENDER UNIT #: [id number] ROOM: 401 DOCTOR: SIMEON RAHMAN MD BIRTHDATE: [birth year] DOS: 10/14/2016 SUBJECTIVE: He has been noted comfortable at this time. The pleurolysis was done yesterday for the patient with additional about 300 mL of pleural fluid was noted. It was still noted mildly hemorrhagic in the Pleur-Evac. The patient denies any symptoms of chest pain or abdominal pain. OBJECTIVE: VITAL SIGNS: Showed normal temperature, respiratory rate 20, heart rate 89, blood pressure 118/70-122/68. Pulse oxygen saturation 3 liters nasal cannula 97% saturation. HEENT: No acute change. NECK: Supple. CARDIOVASCULAR: S1, S2 audible. LUNGS: Still noted decreased breath sounds in the left lung base, remaining lung was clear. There were no crackles or wheezing. ABDOMEN: Soft, nontender. LABORATORY DATA: CBC this morning, WBC count 248.4, hemoglobin 9.3, hematocrit 31.8, platelet count was normal. The vancomycin trough level noted at 19.6. Chest x-ray done this morning shows chest tube in place. The patient noted with partial improvement in the aeration of the left lower lung. However, still noted with possibility of loculated pleural fluid. IMPRESSION: The patient with partial improvement noted in aeration with improvement in the loculation with ejection of the Cathflo to the left pleural space from yesterday. The patient with history of CLL with acute bacterial pneumonia with reduction of the leucocytosis was noted. PLAN OF TREATMENT: Continue antibiotics, bronchodilator. Another Cathflo injection will be done through the chest tube to help improve the loculation of the pleural fluid. If it will be noted unsuccessful to resolve the loculation, certainly, the patient will be considered for sending to another hospital for VATS procedure to manage the current loculated pleural fluid. In the meantime, continuation of the bronchodilators, oxygen supplementation and other plan of management. The assessment and management have been discussed in detail with the patient's spouse as well today in the room with the patient. [place], [place] PROGRESS NOTE NAME: BONNIE BENDER UNIT #: [id number] ROOM: 401 DOCTOR: SIMEON RAHMAN MD BIRTHDATE: [birth year] SIMEON SPAULDING MD CM:YOUNG [id number] SIMEON AVENDAÑO MD 10/15/16216 interface
[~2016-10-08 15:52] MED LIST: ACYCLOVIR400 MG PO; ASPIRIN80 MG PO; AUGMENTIN 875875 MG PO; DOXAZOSIN2 MG PO; FINASTERIDE5 M1 PO; FLONASE ALLERG9.9 ML NAS; LEVAQUIN750 MG PO; NORCO 5-325 TA1 EACH PO; PREDNISONE10 MG PO; TAMSULOSIN HCL0.4 MG PO
[2016-10-08 16:57] LABS: MEAN CORPUSCULAR HGB 28.8 pg (27.0-31.0); MEAN CORPUSCULAR HGB CONC 29.4 g/dl (33.0-37.0); MEAN PLATELET VOLUME 8.1 fl (9.6-12.3); NUCLEATED RED BLOOD CELL 0.1 10*3/uL (0.0-0.0); PLATELET COUNT AUTOMATED 154 10*3/uL (130-400); RED BLOOD COUNT 3.47 10*6/uL (4.50-5.90); RED CELL DISTRI WIDTH 16.1 % (0-14.5)
[2016-10-08 17:07] LABS: PROTHROMBIN TIME 10.8 SECONDS (9.0-12.4)
[2016-10-08 17:19] LABS: ALBUMIN 2.9 gm/dl (3.1-4.5); ALKALINE PHOSPHATASE 79 U/L (45-117); BILIRUBIN, TOTAL 0.4 mg/dl (0.2-1.0); BUN 19 mg/dl (7-24); CARBON DIOXIDE 27 mmol/L (21-32); CHLORIDE 102 mmol/L (98-107); CPK 33 U/L (39-308); EOSINOPHIL # 2.8 10*3/uL (0-0.4); EOSINOPHILS 1 % (1-4); EST GLOM FILT AFRICAN AMERICAN 56 ml/min; GLUCOSE 96 mg/dL (65-99); LYMPHOCYTE # 265.1 10*3/uL (1.3-4.4); MAGNESIUM 2.2 mg/dL (1.5-2.1); NEUTROPHIL # 11.2 10*3/uL (2.3-7.9); NEUTROPHILS 4 % (47-73); POTASSIUM 4.4 mmol/L (3.5-5.1); SGOT/AST 22 IU/L (3-35); SGPT/ALT 16 U/L (12-78); SODIUM 136 mmol/L (136-145); TOTAL CELLS COUNTED 100 #CELLS
[2016-10-08 17:20] LABS: CKMB < 0.5 ng/ml (0.5-3.6); TROPONIN I < 0.015 ng/ml (<0.045)
[2016-10-08 17:21] LABS: PLATELET SUFFICIENCY NORMAL (NORMAL)
[2016-10-08 23:24] LABS: BILIRUBIN NEGATIVE (NEGATIVE); BLOOD 1+ (NEGATIVE); CLARITY CLEAR (CLEAR); COLOR YELLOW (YELLOW); GLUCOSE NEGATIVE (NEGATIVE); KETONE NEGATIVE (NEGATIVE); LEUKO ESTERASE NEGATIVE (NEGATIVE); NITRITE NEGATIVE (NEGATIVE); PROTEIN TRACE (NEGATIVE); SPECIFIC GRAVITY >= 1.030 (1.005-1.030); UROBILINOGEN 0.2 E.U./dl (0.2-1.0)
[2016-10-08 23:34] LABS: URINE REFLEX COMMENT YES (NO)
[2016-10-09] VITALS: BP 140/74
[2016-10-09 04:05] LABS: HEMATOCRIT 30.9 % (42.0-52.0); HEMOGLOBIN 9.1 g/dl (14.0-18.0); MEAN CELL VOLUME 98.4 fl (80.0-94.0); MEAN CORPUSCULAR HGB CONC 29.4 g/dl (33.0-37.0); MEAN PLATELET VOLUME 7.9 fl (9.6-12.3); NUCLEATED RED BLOOD CELL 0.1 10*3/uL (0.0-0.0); PLATELET COUNT AUTOMATED 145 10*3/uL (130-400); RED BLOOD COUNT 3.14 10*6/uL (4.50-5.90)
[2016-10-09 04:12] LABS: WHITE BLOOD COUNT 244.1 10*3/uL (4.8-10.8)
[2016-10-09 04:17] LABS: BUN 17 mg/dl (7-24); CARBON DIOXIDE 26 mmol/L (21-32); CHLORIDE 104 mmol/L (98-107); EST GLOM FILT AFRICAN AMERICAN > 60 ml/min; GLUCOSE 96 mg/dL (65-99); POTASSIUM 4.8 mmol/L (3.5-5.1); SODIUM 139 mmol/L (136-145)
[2016-10-09 04:23] LABS: FREE T4 1.24 ng/dl (0.76-1.46)
[2016-10-09 04:27] LABS: LYMPHOCYTE # 224.6 10*3/uL (1.3-4.4); MONOCYTE # 7.3 10*3/uL (0.1-1.0); NEUTROPHIL # 12.2 10*3/uL (2.3-7.9); NEUTROPHILS 5 % (47-73); PLATELET SUFFICIENCY NORMAL (NORMAL); TOTAL CELLS COUNTED 100 #CELLS
[2016-10-09 04:28] LABS: OVALOCYTES FEW
[2016-10-09 04:30] LABS: MICROCYTOSIS SLIGHT
[2016-10-09 06:45] LABS: FOLIC ACID 9.44 ng/mL (>5.38)
[2016-10-09 08:00] VITALS: BP 128/70
[2016-10-09 12:00] VITALS: BP 122/60
[2016-10-09 16:00] VITALS: BP 128/62
[2016-10-09 20:00] VITALS: BP 125/71
[2016-10-10] VITALS: BP 131/69
[2016-10-10 06:21] LABS: HEMATOCRIT 32.6 % (42.0-52.0); HEMOGLOBIN 9.9 g/dl (14.0-18.0); MEAN CELL VOLUME 97.6 fl (80.0-94.0); MEAN CORPUSCULAR HGB 29.6 pg (27.0-31.0); MEAN CORPUSCULAR HGB CONC 30.4 g/dl (33.0-37.0); MEAN PLATELET VOLUME 7.9 fl (9.6-12.3); NUCLEATED RED BLOOD CELL 0.1 10*3/uL (0.0-0.0); PLATELET COUNT AUTOMATED 176 10*3/uL (130-400); RED BLOOD COUNT 3.34 10*6/uL (4.50-5.90); RED CELL DISTRI WIDTH 15.9 % (0-14.5)
[2016-10-10 06:53] LABS: EOSINOPHILS 2 % (1-4); LYMPHOCYTE # 226.3 10*3/uL (1.3-4.4); NEUTROPHIL # 17.4 10*3/uL (2.3-7.9); NEUTROPHILS 7 % (47-73); TOTAL CELLS COUNTED 100 #CELLS
[2016-10-10 06:54] LABS: PLATELET SUFFICIENCY NORMAL (NORMAL)
[2016-10-10 06:56] LABS: WHITE BLOOD COUNT 248.7 10*3/uL (4.8-10.8)
[2016-10-10 08:00] VITALS: BP 140/73
[2016-10-10 11:55] VITALS: BP 135/73
[2016-10-10 16:00] VITALS: BP 122/55
[2016-10-10 20:00] VITALS: BP 133/66
[2016-10-11] VITALS: BP 124/71
[2016-10-11 08:00] VITALS: BP 120/70
[2016-10-11 10:55] LABS: BODY FLUID RBC 355000 /uL; BODY FLUID WBC 9787 /uL
[2016-10-11 11:10] LABS: BODY FLUID AMYLASE 30 U/L; BODY FLUID CHOLESTEROL 87 mg/dl; BODY FLUID GLUCOSE 94 mg/dl; BODY FLUID LDH 741 IU/L; BODY FLUID PROTEIN 4.5 g/dl; BODY FLUID TRIGLYCERIDE 71 mg/dl
[2016-10-11 11:13] LABS: BODY FLUID TYPE PLEURAL
[2016-10-11 11:19] LABS: BODY FLUID ALBUMIN 2.4 g/dL
[2016-10-11 12:00] VITALS: BP 116/60
[2016-10-11 12:21] LABS: BF LYMPHOCYTES 93 %; BF MACROPHAGES 4 %; BF NEUTROPHILS 1 %
[2016-10-11 13:48] LABS: BODY FLUID HCT 3.7 %
[2016-10-11 16:00] VITALS: BP 111/57
[2016-10-11 20:00] VITALS: BP 131/74
[2016-10-11 23:59] VITALS: BP 112/63
[2016-10-12 07:54] VITALS: BP 120/62
[2016-10-12 08:44] LABS: HEMOGLOBIN 9.7 g/dl (14.0-18.0); MEAN CELL VOLUME 98.8 fl (80.0-94.0); MEAN CORPUSCULAR HGB CONC 29.4 g/dl (33.0-37.0); MEAN PLATELET VOLUME 7.6 fl (9.6-12.3); NUCLEATED RED BLOOD CELL 0.1 10*3/uL (0.0-0.0); PLATELET COUNT AUTOMATED 203 10*3/uL (130-400); RED BLOOD COUNT 3.34 10*6/uL (4.50-5.90); RED CELL DISTRI WIDTH 15.8 % (0-14.5)
[2016-10-12 09:08] LABS: ATYPICAL LYMPHS 1 % (0-0); LYMPHOCYTE # 248.8 10*3/uL (1.3-4.4); MONOCYTE # 2.8 10*3/uL (0.1-1.0); NEUTROPHIL # 24.9 10*3/uL (2.3-7.9); NEUTROPHILS 9 % (47-73); TOTAL CELLS COUNTED 100 #CELLS
[2016-10-12 09:09] LABS: PLATELET SUFFICIENCY NORMAL (NORMAL)
[2016-10-12 09:11] LABS: WHITE BLOOD COUNT 276.4 10*3/uL (4.8-10.8)
[2016-10-12 09:14] LABS: BUN 14 mg/dl (7-24); EST GLOM FILT AFRICAN AMERICAN > 60 ml/min; LDH 206 U/L (87-241)
[2016-10-12 12:00] VITALS: BP 110/62
[2016-10-12 16:00] VITALS: BP 132/59
[2016-10-12 20:00] VITALS: BP 128/65
[2016-10-13] VITALS: BP 109/62
[2016-10-13 08:00] VITALS: BP 119/74
[2016-10-13 12:00] VITALS: BP 114/59
[2016-10-13 16:00] VITALS: BP 112/63
[2016-10-13 20:00] VITALS: BP 123/59
[2016-10-14] VITALS: BP 123/71
[2016-10-14 08:00] VITALS: BP 122/68
[2016-10-14 09:32] LABS: HEMATOCRIT 31.8 % (42.0-52.0); HEMOGLOBIN 9.3 g/dl (14.0-18.0); MEAN CELL VOLUME 99.1 fl (80.0-94.0); MEAN CORPUSCULAR HGB CONC 29.2 g/dl (33.0-37.0); MEAN PLATELET VOLUME 7.3 fl (9.6-12.3); NUCLEATED RED BLOOD CELL 0.1 10*3/uL (0.0-0.0); PLATELET COUNT AUTOMATED 225 10*3/uL (130-400); RED BLOOD COUNT 3.21 10*6/uL (4.50-5.90); RED CELL DISTRI WIDTH 15.6 % (0-14.5)
[2016-10-14 09:58] LABS: LYMPHOCYTE # 233.5 10*3/uL (1.3-4.4); NEUTROPHIL # 14.9 10*3/uL (2.3-7.9); NEUTROPHILS 6 % (47-73); PLATELET SUFFICIENCY NORMAL (NORMAL); TOTAL CELLS COUNTED 100 #CELLS
[2016-10-14 10:02] LABS: SPHEROCYTES FEW
[2016-10-14 10:08] LABS: WHITE BLOOD COUNT 248.4 10*3/uL (4.8-10.8)
[2016-10-14 11:45] VITALS: BP 118/70
[2016-10-14 16:00] VITALS: BP 120/68
[2016-10-14 20:00] VITALS: BP 140/76
[2016-10-15] VITALS: BP 116/59
[2016-10-15 06:41] LABS: HEMATOCRIT 32.6 % (42.0-52.0); HEMOGLOBIN 9.6 g/dl (14.0-18.0); MEAN CELL VOLUME 99.1 fl (80.0-94.0); MEAN CORPUSCULAR HGB 29.2 pg (27.0-31.0); MEAN CORPUSCULAR HGB CONC 29.4 g/dl (33.0-37.0); MEAN PLATELET VOLUME 7.5 fl (9.6-12.3); NUCLEATED RED BLOOD CELL 0.1 10*3/uL (0.0-0.0); PLATELET COUNT AUTOMATED 276 10*3/uL (130-400); RED BLOOD COUNT 3.29 10*6/uL (4.50-5.90); RED CELL DISTRI WIDTH 15.7 % (0-14.5)
[2016-10-15 07:05] LABS: HYPOCHROMIA SLIGHT; LYMPHOCYTE # 269.9 10*3/uL (1.3-4.4); MONOCYTE # 2.8 10*3/uL (0.1-1.0); NEUTROPHIL # 2.8 10*3/uL (2.3-7.9); NEUTROPHILS 1 % (47-73); PLATELET SUFFICIENCY NORMAL (NORMAL); TOTAL CELLS COUNTED 100 #CELLS
[2016-10-15 07:08] LABS: WHITE BLOOD COUNT 275.4 10*3/uL (4.8-10.8)
[2016-10-15 07:35] LABS: BUN 13 mg/dl (7-24)
[2016-10-15 07:38] LABS: EST GLOM FILT AFRICAN AMERICAN > 60 ml/min
[2016-10-15 08:00] VITALS: BP 112/64
[2016-10-15 12:00] VITALS: BP 107/49; BP 115/20
== END 2016-10-15 14:47 | disposition short-term general hospital (02) | DRG 853 ==
LOC: ED 15:52 → 4E 18:11 → EDHOLD 18:11 → 4E 18:38
PROVIDERS: Emergency Medicine; Hospitalist; Internal Medicine; Internal Medicine Critical Care Medicine; Internal Medicine Hospice and Palliative Medicine
PROC: 0W9B30Z Drainage of Left Pleural Cavity with Drainage Device, Percutaneous Approach (ICD-10-PCS; principal; 2016-10-11)
PROC: 0BN Respiratory System, Release (ICD-10-PCS; 2016-10-13)
DX: A41.9 Sepsis, unspecified organism (principal); J18.9 Pneumonia, unspecified organism; N17.0 Acute kidney failure with tubular necrosis; E44.0 Moderate protein-calorie malnutrition; J90 Pleural effusion, not elsewhere classified; D84.9 Immunodeficiency, unspecified; C91.10 Chronic lymphocytic leukemia of B-cell type not having achieved remission; E83.41 Hypermagnesemia; N40.0 Benign prostatic hyperplasia without lower urinary tract symptoms; B00.9 Herpesviral infection, unspecified; D53.9 Nutritional anemia, unspecified; N18.3 Chronic kidney disease, stage 3 (moderate); D63.8 Anemia in other chronic diseases classified elsewhere; D63.0 Anemia in neoplastic disease; Z79.899 Other long term (current) drug therapy; Z80.0 Family history of malignant neoplasm of digestive organs; Z68.25 Body mass index [BMI] 25.0-25.9, adult

== ENCOUNTER → 2016-10-31 | Outpatient (CLI) | payer MEDICARE, OTHER | END | disposition home or self-care (01) | LOC: RAD 11:15 | DX: J90 Pleural effusion, not elsewhere classified (principal) ==

== ENCOUNTER → 2017-03-15 | Day surgery (SDC) | payer MEDICARE, OTHER ==
[2017-03-14 09:06] VITALS: BP 124/65
[2017-03-14 10:32] LABS: BILIRUBIN NEGATIVE (NEGATIVE); BLOOD TRACE-INTACT (NEGATIVE); CLARITY CLEAR (CLEAR); COLOR YELLOW (YELLOW); GLUCOSE NEGATIVE (NEGATIVE); KETONE NEGATIVE (NEGATIVE); LEUKO ESTERASE NEGATIVE (NEGATIVE); NITRITE NEGATIVE (NEGATIVE); UROBILINOGEN 0.2 E.U./dl (0.2-1.0)
[2017-03-14 10:36] LABS: CREATININE 1.42 mg/dL (0.70-1.30); POTASSIUM 4.1 mmol/L (3.5-5.1)
[2017-03-14 10:54] LABS: HEMATOCRIT 43.2 % (42.0-52.0); MEAN CELL VOLUME 92.3 fl (80.0-94.0); MEAN CORPUSCULAR HGB 27.8 pg (27.0-31.0); MEAN CORPUSCULAR HGB CONC 30.1 g/dl (33.0-37.0); PLATELET COUNT AUTOMATED 108 10*3/uL (130-400); RED BLOOD COUNT 4.68 10*6/uL (4.50-5.90); RED CELL DISTRI WIDTH 14.6 % (0-14.5)
[2017-03-14 10:59] LABS: BACTERIA TRACE; MUCOUS 1+
[2017-03-14 11:09] LABS: INTERNATIONAL NORM RATIO 1.1 (2.0-3.5)
[2017-03-14 11:33] LABS: PLATELET SUFFICIENCY LOW (NORMAL); TOTAL CELLS COUNTED 100 #CELLS
[2017-03-14 11:35] LABS: WHITE BLOOD COUNT 109.7 10*3/uL (4.8-10.8)
[~2017-03-15] VITALS: Ht 190.5 cm; Wt 93.0 kg
--- NOTE | ~2017-03-15 | O ---
[place], [place] OPERATIVE NOTE NAME: BONNIE BENDER UNIT #: [id number] ROOM: DOCTOR: TEE RAJAN MD BIRTHDATE: [birth year] DOS: 03/15/2017 PREOPERATIVE DIAGNOSIS: Generalized lymphadenopathy. POSTOPERATIVE DIAGNOSIS: Generalized lymphadenopathy. PROCEDURE: Excision biopsy of left cervical lymph node. SURGEON: Tee Rajan M.D. SLOOP CAPTAIN: MS3. ANESTHESIA: MAC. INDICATIONS: This is a 71-year-old gentleman with generalized lymphadenopathy who is here for the above-mentioned procedure. The procedure and its complications were explained to the patient in detail preoperatively. Complications that were discussed included but were not limited to bleeding, infection, hematoma/seroma/abscess formation, lymphocele formation, prolonged postoperative pain, and damage to underlying vital structures. He agreed to proceed. DESCRIPTION OF PROCEDURE: After identifying the patient, the patient was brought to the operating suite and laid in the right lateral position. After IV sedation was administered, a timeout procedure was called and the parts were then painted and draped in the usual sterile fashion. A skin incision was marked over the lymph nodes that needed to be excised. Local anesthesia (1% plain lidocaine) was injected along the line of the incision. Skin incision was made with the help of a knife and deepened in layers. The lymph node mass was identified and excised after it was carefully from the surrounding neck tissues and also after the lymphatics were ligated with the help of 3-0 Vicryl. The specimen was sent for histopathological diagnosis. Therefore, hemostasis was confirmed with the help of electrocautery. Thereafter, saline was used for irrigation. After hemostasis was confirmed again, the subcutaneous tissue was approximated with the help of 3-0 Vicryl in a running fashion and the skin edges were approximated with the help of 4-0 Vicryl in a subcuticular running fashion. Dressing was placed. The patient tolerated the procedure well and was brought back to the recovery room in stable fashion. There were no complications. Dr. Tee Rajan, the attending surgeon, was present throughout the operating case. [place], [place] OPERATIVE NOTE NAME: NAPOLEONBONNIE UNIT #: [id number] ROOM: DOCTOR: TEE RAJAN MD BIRTHDATE: [birth year] Tee Rajan MD CM:NIKITA:OPERATIVE NOTE [id number] TEE RAJAN MD 03/15/17 1604 interface
[2017-03-15 08:15] VITALS: BP 141/75
[2017-03-15 10:20] VITALS: BP 126/73
[2017-03-15 10:35] VITALS: BP 121/94
[2017-03-15 10:50] VITALS: BP 121/84
[2017-03-17 12:05] LABS: ACID FAST SMEAR Negative (.); ACID FAST SPEC PROCESSING Tissue Grinding (.)
== END | disposition home or self-care (01) ==
LOC: SDC 03-14 08:45
PROVIDERS: Surgery
DX: R59.1 Generalized enlarged lymph nodes (principal); Z98.890 Other specified postprocedural states; Z80.9 Family history of malignant neoplasm, unspecified; Z79.899 Other long term (current) drug therapy

== ENCOUNTER → 2019-08-11 | Outpatient (CLI) | payer OTHER | END | disposition home or self-care (01) | LOC: LAB 09:52 | DX: E87.5 Hyperkalemia (principal) ==

== ENCOUNTER 2019-08-25 12:59 | Emergency (ER) | payer OTHER, MEDICARE ==
[2019-08-25 13:46] LABS: HEMATOCRIT 33.2 % (42.0-52.0); HEMOGLOBIN 10.1 g/dl (14.0-18.0); MEAN CELL VOLUME 102.5 fl (80.0-94.0); MEAN CORPUSCULAR HGB 31.2 pg (27.0-31.0); MEAN CORPUSCULAR HGB CONC 30.4 g/dl (33.0-37.0); MEAN PLATELET VOLUME 7.8 fl (9.6-12.3); NUCLEATED RED BLOOD CELL 0.1 10*3/uL (0.0-0.0); PLATELET COUNT AUTOMATED 134 10*3/uL (130-400); RED BLOOD COUNT 3.24 10*6/uL (4.50-5.90); RED CELL DISTRI WIDTH 15.6 % (0-14.5)
[2019-08-25 13:58] LABS: ALBUMIN 3.8 gm/dl (3.1-4.5); CREATININE 1.51 mg/dL (0.70-1.30); POTASSIUM 5.9 mmol/L (3.5-5.1); TOTAL PROTEIN 7.1 gm/dL (6.4-8.2)
[2019-08-25 14:13] LABS: WHITE BLOOD COUNT 329.4 10*3/uL (4.8-10.8)
[2019-08-25 14:15] LABS: ATYPICAL LYMPHS 6 % (0-0); TOTAL CELLS COUNTED 100 #CELLS
[2019-08-25 14:16] LABS: BLASTS 1 % (0-0)
[2019-08-25 14:17] LABS: PLATELET SUFFICIENCY LOW (NORMAL); POLYCHROMASIA SLIGHT
== END 2019-08-25 16:10 | disposition home or self-care (01) ==
LOC: ED 12:59
PROVIDERS: Emergency Medicine
DX: E87.5 Hyperkalemia (principal); C95.90 Leukemia, unspecified not having achieved remission; N18.3 Chronic kidney disease, stage 3 (moderate); Z79.899 Other long term (current) drug therapy

== ENCOUNTER → 2020-03-28 | Outpatient (CLI) | payer OTHER | END | disposition home or self-care (01) | LOC: CT 09:43 | PROVIDERS: ATTEND Nurse Practitioner Family | DX: N28.1 Cyst of kidney, acquired (principal); K44.9 Diaphragmatic hernia without obstruction or gangrene; K76.89 Other specified diseases of liver ==

== ENCOUNTER → 2021-05-10 | Outpatient (CLI) | payer OTHER | END | disposition home or self-care (01) | LOC: LAB 00:26 → CT 14:00 | PROVIDERS: ATTEND Nurse Practitioner Family | DX: N28.1 Cyst of kidney, acquired (principal); K40.90 Unilateral inguinal hernia, without obstruction or gangrene, not specified as recurrent; K57.30 Diverticulosis of large intestine without perforation or abscess without bleeding; K57.32 Diverticulitis of large intestine without perforation or abscess without bleeding; K76.89 Other specified diseases of liver; M47.816 Spondylosis without myelopathy or radiculopathy, lumbar region; N40.0 Benign prostatic hyperplasia without lower urinary tract symptoms ==

== ENCOUNTER → 2021-07-13 | Day surgery (SDC) | payer OTHER ==
[2021-07-10 13:09] VITALS: BP 114/75
[2021-07-10 14:33] LABS: BASO % 0.4 % (0.0-1.0); EOS # 0.1 10*3/uL (0.0-0.4); EOS % 1.8 % (1.0-4.0); HEMATOCRIT 48.8 % (42.0-52.0); LYMPH # 3.6 10*3/uL (1.3-4.4); LYMPH % 47.4 % (27.0-41.0); MEAN CELL VOLUME 95.9 fl (80.0-94.0); MEAN CORPUSCULAR HGB 31.6 pg (27.0-31.0); MEAN PLATELET VOLUME 9.9 fl (9.6-12.3); MONO # 0.7 10*3/uL (0.1-1.0); MONO % 8.6 % (3.0-9.0); NEUT # 3.2 10*3/uL (2.3-7.9); NEUT % 41.5 % (47.0-73.0); PLATELET COUNT AUTOMATED 160 10*3/uL (130-400); RED BLOOD COUNT 5.09 10*6/uL (4.50-5.90); RED CELL DISTRI WIDTH 12.9 % (0-14.5); WHITE BLOOD COUNT 7.7 10*3/uL (4.8-10.8)
[2021-07-10 15:37] LABS: BUN 14 mg/dl (7-24); CHLORIDE 107 mmol/L (98-107); CREATININE 1.28 mg/dL (0.70-1.30); POTASSIUM 4.5 mmol/L (3.5-5.1); SODIUM 141 mmol/L (136-145)
[~2021-07-13] VITALS: Ht 190.5 cm; Wt 96.2 kg
[~2021-07-13] MED LIST changes: +ALLOPURINOL300 MG PO; +CALQUENCE100 MG PO; +COLACE100 MG PO; +IMMUNOGLOBULIN; +PERCOCET 5-3251 EACH PO; +ZOFRAN4 MG PO
[2021-07-13 07:01] VITALS: BP 133/83
[2021-07-13 08:25] VITALS: BP 112/66
[2021-07-13 08:40] VITALS: BP 127/67
[2021-07-13 08:55] VITALS: BP 130/71
[2021-07-13 09:10] VITALS: BP 122/68
[2021-07-13 09:25] VITALS: BP 125/69
== END | disposition home or self-care (01) ==
LOC: SDC 07-10 13:15
PROVIDERS: ATTEND Surgery
DX: K40.31 Unilateral inguinal hernia, with obstruction, without gangrene, recurrent (principal); Z20.822 Contact with and (suspected) exposure to COVID-19; Z79.899 Other long term (current) drug therapy